=== PATIENT | female | born 1995 | race Caucasian/White ===

== ENCOUNTER 2016-06-08 09:03 | Outpatient (CLI) | payer MEDICAID ==
[~2016-06-08] VITALS: Ht 152.4 cm; Wt 112.9 kg
[~2016-06-08 09:03] MED LIST: AMOX500C2 PO; CTLP20T PO; DOCU100C37 PO; FOLI0.4T2 PO; IBUP-1780 PO; KETO75CA PO; MOME45OI11 TP; MUPI15CR11 TP; OMEP20CA6 PO; OMEP20TA7 PO; OXYC-465 PO; PREN1TAB79 PO; PROM25TA14 PO; SULF1TAB35 PO
[2016-06-08 09:32] VITALS: BP 136/65
[2016-06-08] MEDS ORDERED: RANI150T15 PO (09:48)
[2016-06-08] MEDS ORDERED: PEDI1TAB PO (09:48)
[2016-06-08] MEDS ORDERED: ACET325T38 PO (09:50)
[2016-06-08] MEDS ORDERED: FLU TRIvalent (5 YOA+) 2016-17 (AFLURIA) 0.5 ML IM ONE (10:15)
--- NOTE | 2016-06-09 09:57 | Physician Query-Final Dx ---
SHARI ADAIR 06/09/16 0957: Clinic Account Progress/Dx Physician Query: Please give diagnosis Date of Service Jun 08, 2016 at 09:03 ADILENE NICOLE MD 06/09/16 1358: Clinic Account Progress/Dx DIAGNOSIS: Diagnosis false labor SHARI ADAIR Jun 09, 2016 09:57 ADILENE NICOLE MD Jun 09, 2016 13:58
== END 2016-06-08 10:09 | disposition home or self-care (01) ==
LOC: LDRP 09:03 → WSo 09:03
PROVIDERS: ATTEND Obstetrics & Gynecology
DX: O47.02 False labor before 37 completed weeks of gestation, second trimester (principal); Z3A.28 28 weeks gestation of pregnancy
CPT/HCPCS: 99212

== ENCOUNTER 2016-07-17 21:15 | Observation (INO) | payer MEDICAID ==
[~2016-07-17] VITALS: Ht 154.9 cm; Wt 116.8 kg
[~2016-07-17 21:15] MED LIST changes: +ACET325T38 PO; +PEDI1TAB PO; +RANI150T15 PO
[2016-07-17 21:45] VITALS: BP 140/88
[2016-07-17] MEDS ORDERED: ONDANSETRON 4 MG/2 ML (SDV) Z0FRAN ONE (21:56)
[2016-07-17] MEDS ORDERED: D5 LR IV SOLUTION 1,000 ML IV ONE (21:56)
[2016-07-17] MEDS: D5 LR IV SOLUTION 1,000 ML IV SCH ×2 (22:10→23:55)
[2016-07-17] MEDS ORDERED: ONDANSETRON 4 MG/2 ML (SDV) Z0FRAN IVP ONE (22:45)
[2016-07-17 23:04] LABS: BASOPHILS % (AUTO) 0 % (0-10); EOSINOPHILS % (AUTO) 0 % (0-10); LYMPHOCYTES % (AUTO) 10 % (12-44); MEAN CORPUSCULAR HEMOGLOBIN 26 PG (25-34); MEAN CORPUSCULAR HGB CONC 32 G/DL (32-36); MEAN CORPUSCULAR VOLUME 80 FL (80-99); MEAN PLATELET VOLUME 12.8 FL (7.4-10.4); MONOCYTES # (AUTO) 0.6 X 10^3 (0.0-1.0); MONOCYTES % (AUTO) 6 % (0-12); NEUTROPHILS # (AUTO) 8.5 X 10^3 (1.8-7.8); NEUTROPHILS % (AUTO) 84 % (42-75); PLATELET COUNT 191 10^3/uL (130-400); RED BLOOD COUNT 4.12 10^6/uL (4.35-5.85); RED CELL DISTRIBUTION WIDTH 14.6 % (10.0-14.5); WHITE BLOOD COUNT 10.2 10^3/uL (4.3-11.0)
[2016-07-17 23:11] LABS: BILIRUBIN,URINE NEGATIVE (NEGATIVE); KETONES,URINE 2+ (NEGATIVE); LEUKOCYTE ESTERASE ,URINE 1+ (NEGATIVE); NITRITE,URINE NEGATIVE (NEGATIVE); PH,URINE 5 (5-9); PROTEIN,URINE 2+ (NEGATIVE); UROBILINOGEN,URINE NORMAL (NORMAL)
[2016-07-17 23:25] LABS: ALANINE AMINOTRANSFERASE < 6 U/L (0-55); ALBUMIN 3.2 G/DL (3.2-4.5); ANION GAP 13 MMOL/L (5-14); ASPARTATE AMINO TRANSFERASE 12 U/L (5-34); BILIRUBIN,TOTAL 0.4 MG/DL (0.1-1.0); BLOOD UREA NITROGEN 9 MG/DL (7-18); BUN/CREATININE RATIO 14; CALCIUM 8.8 MG/DL (8.5-10.1); CARBON DIOXIDE 17 MMOL/L (21-32); CHLORIDE 108 MMOL/L (98-107); CREATININE SERUM 0.65 MG/DL (0.60-1.30); GFR ESTIMATED > 60; GLUCOSE 91 MG/DL (70-105); POTASSIUM 4.1 MMOL/L (3.6-5.0); SODIUM 138 MMOL/L (135-145); TOTAL PROTEIN 6.3 G/DL (6.4-8.2)
[2016-07-17] MEDS ORDERED: ACETAMINOPHEN 500 MG TAB (TYLENOL) PO PRN (23:45)
[2016-07-18] MEDS ORDERED: D5 LR IV SOLUTION 1,000 ML IV SCH (02:30)
--- NOTE | 2016-07-18 07:35 | History & Physical ---
History and Physical this patient is a 20-year-old white female with an EDC of [phone] putting her at around 32 weeks gestation. She presented with complaint of nausea and vomiting 18. Baby having occasional contractions. She is able to eat. With hydration her contractions resolved. Currently she feels much improved. She denies rupture membranes or bleeding. She feels both of her baby is moving she denies contractions. She feels ready for release home Allergies are to tramadol which causes hives Medications are promethazine and vitamins Past medical history, past surgical history, obstetric history, family history, and social histories are per the antepartum record HEENT exam is normal Neck is supple no lymphadenopathy no thyromegaly Abdomen is gravid soft nontender nondistended Extreme show clubbing cyanosis. There is no Homans sign. pelvic exam is deferred Vital Signs Date Time Temp Pulse Resp B/P Pulse Ox O2 Delivery O2 Flow Rate FiO2 07/17/16 21:45 98.3 91 18 140/88 Room Air Laboratory Tests Test 07/17/16 22:00 07/17/16 22:36 Range/Units Urine Bacteria MODERATE H /HPF Urine Bilirubin NEGATIVE NEGATIVE Urine Casts NONE /LPF Urine Clarity SLIGHTLY CLOUDY Urine Color YELLOW Urine Crystals NONE /LPF Urine Culture Indicated NO Urine Glucose (UA) NEGATIVE NEGATIVE Urine Ketones 2+ H NEGATIVE Urine Leukocyte Esterase 1+ H NEGATIVE Urine Mucus SMALL H /LPF Urine Nitrite NEGATIVE NEGATIVE Urine Protein 2+ H NEGATIVE Urine RBC NONE /HPF Urine RBC (Auto) NEGATIVE NEGATIVE Urine Specific [place] 1.025 H 1.016-1.022 Urine Squamous Epithelial Cells 5-10 /HPF Urine Urobilinogen NORMAL NORMAL MG/DL Urine WBC 2-5 /HPF Urine pH 5 5-9 Alanine Aminotransferase (ALT/SGPT) < 6 0-55 U/L Albumin 3.2 3.2-4.5 G/DL Alkaline Phosphatase 126 40-136 U/L Anion Gap 13 5-14 MMOL/L Aspartate Amino Transf (AST/SGOT) 12 5-34 U/L BUN/Creatinine Ratio 14 Basophils # (Auto) 0.0 0.0-0.1 10^3/uL Basophils (%) (Auto) 0 0-10 % Blood Urea Nitrogen 9 7-18 MG/DL Calcium Level 8.8 8.5-10.1 MG/DL Carbon Dioxide Level 17 L 21-32 MMOL/L Chloride Level 108 H 98-107 MMOL/L Creatinine 0.65 0.60-1.30 MG/DL Eosinophils # (Auto) 0.0 0.0-0.3 10^3/uL Eosinophils (%) (Auto) 0 0-10 % Estimat Glomerular Filtration Rate > 60 Glucose Level 91 70-105 MG/DL Hematocrit 33 L 35-52 % Hemoglobin 10.5 L 11.5-16.0 G/DL Lymphocytes # (Auto) 1.0 1.0-4.0 X 10^3 Lymphocytes (%) (Auto) 10 L 12-44 % Mean Corpuscular Hemoglobin 26 25-34 PG Mean Corpuscular Hemoglobin Concent 32 32-36 G/DL Mean Corpuscular Volume 80 80-99 FL Mean Platelet Volume 12.8 H 7.4-10.4 FL Monocytes # (Auto) 0.6 0.0-1.0 X 10^3 Monocytes (%) (Auto) 6 0-12 % Neutrophils # (Auto) 8.5 H 1.8-7.8 X 10^3 Neutrophils (%) (Auto) 84 H 42-75 % Platelet Count 191 130-400 10^3/uL Potassium Level 4.1 3.6-5.0 MMOL/L Red Blood Count 4.12 L 4.35-5.85 10^6/uL Red Cell Distribution Width 14.6 H 10.0-14.5 % Sodium Level 138 135-145 MMOL/L Total Bilirubin 0.4 0.1-1.0 MG/DL Total Protein 6.3 L 6.4-8.2 G/DL White Blood Count 10.2 4.3-11.0 10^3/uL assessment and plan 32+ week gestation with viral syndrome now resolved. Will allow patient home follow-up in clinic viral syndrome Allergies and Home Medications Allergies Coded Allergies: tramadol (Unverified Adverse Reaction, Unknown, 04/20/16) Reports Dr Lofton told her to not take it Home Medications Acetaminophen 325 Mg Tablet 325 MG PO Q6H (Reported) Folic Acid 0.4 Mg Tablet 0.4 MG PO DAILY (Reported) Pediatric Multivit Comb No.101 1 Each Tab.chew 2 EACH PO DAILY (Reported) Promethazine HCl 25 Mg Tablet #14 25 MG PO Q8H PRN PRN NAUSEA/VOMITING Prescribed by: TONY DAVALOS on 01/06/16 0333 Ranitidine HCl 150 Mg Tablet 150 MG PO BID (Reported) ADILENE NICOLE MD Jul 18, 2016 7:35 am
--- NOTE | 2016-07-18 07:36 | Discharge Instructions ---
Discharge Instructions Discharge Medications New, Converted or Re-Newed RX: Other Patient Instructions Patient Instructions: as directed Return to [facility] For: as directed Activity & Diet Discharge Diet: No Restrictions Activity as Tolerated: Yes Orders-Post D/C & Referrals return to clinic as scheduled ADILENE NICOLE MD Jul 18, 2016 7:36 am
[2016-07-18] MEDS ORDERED: TETANUS,DIPTH,PERTUSS P/F (BOOSTRIX) 0.5 ML VIAL IM ONE (09:00)
--- NOTE | 2016-07-23 10:32 | Physician Query-Final Dx ---
JUAN ORTEGA 07/23/16 1032: Final Diagnosis Give Final Diagnosis Please give Final Diagnosis ADILENE NICOLE MD 07/23/16 1625: Final Diagnosis Give Final Diagnosis viral gastroenteritis in JUAN ORTEGA Jul 23, 2016 10:32 ADILENE NICOLE MD Jul 23, 2016 16:25
== END 2016-07-18 07:35 | disposition home or self-care (01) ==
LOC: LDRP 21:15 → WSo 21:15 → LDRP 21:22 → UNDOADMOB 21:50 → WSo 21:50 → UNDODISOB 07-18 08:05 → LDRP 07-18 08:05 → WSo 07-18 08:05 → EDSTATUS 07-18 15:01
PROVIDERS: ADMIT Obstetrics & Gynecology; ATTEND Obstetrics & Gynecology
DX: O98.513 Other viral diseases complicating pregnancy, third trimester (principal); B34.9 Viral infection, unspecified; Z3A.32 32 weeks gestation of pregnancy
CPT/HCPCS: 36415; 80053; 81000; 85025; 96360; 96361; 99211; G0378

== ENCOUNTER → 2016-07-24 | Outpatient (CLI) | payer MEDICAID ==
[~2016-07-24] MED LIST changes: +DOCU-143 PO; +HYDR-3820 PO; +IBUP-1773 PO; +LABE200T3 PO; +OXYC-197 PO
[2016-07-24 13:26] LABS: PROTEIN/CREATININE RATIO 0.15
== END ==
LOC: LABNPT 12:59
PROVIDERS: ATTEND Obstetrics & Gynecology
DX: O28.8 Other abnormal findings on antenatal screening of mother (principal)
CPT/HCPCS: 82570; 84156

== ENCOUNTER 2016-07-29 11:09 | Outpatient (RCR) | payer MEDICAID ==
[~2016-07-29 11:09] MED LIST changes: -DOCU-143 PO; -HYDR-3820 PO; -IBUP-1773 PO; -LABE200T3 PO; -OXYC-197 PO
[2016-07-30] MEDS ORDERED: OXYC-197 PO (21:09)
[2016-07-30] MEDS ORDERED: IBUP-1773 PO (21:09)
[2016-07-30] MEDS ORDERED: DOCU-143 PO (21:09)
== END 2016-07-29 12:05 | disposition home or self-care (01) ==
PROVIDERS: ATTEND Obstetrics & Gynecology
DX: O99.89 Other specified diseases and conditions complicating pregnancy, childbirth and the puerperium (principal); M54.9 Dorsalgia, unspecified

== ENCOUNTER 2016-07-30 16:30 | Inpatient (IN) | payer MEDICAID ==
[~2016-07-30] VITALS: Ht 152.4 cm; Wt 123.4 kg
[2016-07-30] VITALS (18 sets, daily range): BP systolic 138–172; BP diastolic 77–112
[2016-07-30 17:37] LABS: BILIRUBIN,URINE NEGATIVE (NEGATIVE); KETONES,URINE 1+ (NEGATIVE); LEUKOCYTE ESTERASE ,URINE 1+ (NEGATIVE); NITRITE,URINE NEGATIVE (NEGATIVE); PH,URINE 6 (5-9); PROTEIN,URINE 4+ (NEGATIVE); UROBILINOGEN,URINE 1 MG/DL (NORMAL)
[2016-07-30 17:47] LABS: BASOPHILS % (AUTO) 0 % (0-10); EOSINOPHILS % (AUTO) 0 % (0-10); LYMPHOCYTES # (AUTO) 1.2 X 10^3 (1.0-4.0); LYMPHOCYTES % (AUTO) 16 % (12-44); MEAN CORPUSCULAR HEMOGLOBIN 25 PG (25-34); MEAN CORPUSCULAR HGB CONC 32 G/DL (32-36); MEAN CORPUSCULAR VOLUME 79 FL (80-99); MEAN PLATELET VOLUME 12.5 FL (7.4-10.4); MONOCYTES # (AUTO) 0.5 X 10^3 (0.0-1.0); MONOCYTES % (AUTO) 7 % (0-12); NEUTROPHILS # (AUTO) 5.6 X 10^3 (1.8-7.8); NEUTROPHILS % (AUTO) 77 % (42-75); PLATELET COUNT 189 10^3/uL (130-400); RED BLOOD COUNT 3.93 10^6/uL (4.35-5.85); RED CELL DISTRIBUTION WIDTH 14.8 % (10.0-14.5); WHITE BLOOD COUNT 7.3 10^3/uL (4.3-11.0)
[2016-07-30 18:09] LABS: ALANINE AMINOTRANSFERASE 8 U/L (0-55); ANION GAP 11 MMOL/L (5-14); ASPARTATE AMINO TRANSFERASE 13 U/L (5-34); BILIRUBIN,TOTAL 0.2 MG/DL (0.1-1.0); BLOOD UREA NITROGEN 11 MG/DL (7-18); BUN/CREATININE RATIO 17; CALCIUM 8.6 MG/DL (8.5-10.1); CARBON DIOXIDE 20 MMOL/L (21-32); CHLORIDE 107 MMOL/L (98-107); CREATININE SERUM 0.66 MG/DL (0.60-1.30); GFR ESTIMATED > 60; GLUCOSE 89 MG/DL (70-105); LACTATE DEHYDROGENASE 158 U/L (125-220); POTASSIUM 3.8 MMOL/L (3.6-5.0); SODIUM 138 MMOL/L (135-145); TOTAL PROTEIN 5.9 G/DL (6.4-8.2); URIC ACID 7.2 MG/DL (2.6-7.2)
[2016-07-30] MEDS ORDERED: LACTATED RINGERS 1,000 ML IV ONE ×2 (18:38→19:31)
[2016-07-30 18:40] LABS: PROTEIN/CREATININE RATIO 2.44
[2016-07-30] MEDS ORDERED: METOCLOPRAMIDE INJ 10 MG/2 ML (REGLAN) ONE (19:08)
[2016-07-30] MEDS ORDERED: CITRIC ACID/SOB CIT (BICITRA) 30 ML UDC ONE (19:08)
[2016-07-30] MEDS ORDERED: FAMOTIDINE 20MG/2ML IV (PEPCID) ONE ×2 (19:09→19:31)
[2016-07-30] MEDS ORDERED: FLU TRIvalent (5 YOA+) 2016-17 (AFLURIA) 0.5 ML IM ONE (19:15)
--- NOTE | 2016-07-30 19:25 | History & Physical-OB ---
OB - Chief Complaint & HPI Date Date of Admission: Date of Admission: Chief Complaint/History OB-Reason for Admission/Chief: Hx : 2 Hx Para: 1 Expected Date of Delivery: Aug 31, 2016 Gestational Age in Weeks: 35 Gestational Age in Days: 3 Other reason for admission: 20 y/o @ 35w3d by 7 wk sono here for increased edema. Reports today she had significant increase in edema in bilateral LE, hands, face. No h/a, vision changes. Does note RUQ pain but with movement. Reports BP was increased and had to be retaken several times in clinic last week. Did have 13lb wt gain last week (at 34 wga) in clinic as well. Mother took her BP and it was elevated > 160/110. managed [address] Valente. Complicated by mono/di twin gestation, short interval (last CD 05/28/15 for FTP). otherwise c/b class III obesity, low back pain (in PT), GERD, n/v of . History of Labs O+ Antibody neg RI Hep B neg HIV neg RPR NR GC/CT neg/neg 1 hr GTT 129 Allergies and Home Medications Allergies Coded Allergies: tramadol (Unverified Adverse Reaction, Unknown, 04/20/16) Reports Dr Lofton told her to not take it Home Medications Acetaminophen 325 Mg Tablet, 325 MG PO Q6H, (Reported) Folic Acid 0.4 Mg Tablet, 0.4 MG PO DAILY, (Reported) Pediatric Multivit Comb No.101 1 Each Tab.chew, 2 EACH PO DAILY, (Reported) Promethazine HCl 25 Mg Tablet, 25 MG PO Q8H PRN for NAUSEA/VOMITING, #14 Prescribed by: TONY DAVALOS on 01/06/16 0333 Ranitidine HCl 150 Mg Tablet, 150 MG PO BID, (Reported) OB - History Hx of Present Care: Yes Ultrasounds: Abnormal US findings (mono/di twin gestation) Obstetrical Complications: Other (mono/di twin gestation) Medical Complications: Other (class III obesity, GERD, low back pain) Information Induced Hypertension: Yes Maternal Gestational Diabetes: No Hemorrhage: No Obstetrical History Hx : 2 Hx Para: 1 Hx Total # of Abortions (Spona: 0 Delivery History Hx Section: Yes (FTP, [id number], May 2015) Hx Blood Disorders: No Adverse Rxn to Tranfusion: No Patient Past Medical History see above Social History/Family History HIV/AIDS: No Recent Infectious Disease Expo: No Sexually Transmitted Disease: No Alcohol Use: Denies Use Recreational Drug Use: No Smoking Cessation: Never smoker Immunizations Hepatitis A: Yes Hepatitis B: Yes Tetanus Booster (TDap): Less than 5yrs Date of Influenza Vaccine: Feb 24, 2015 Rubella: immune RPR/VDRL: Negative GBS Status: Negative HBsAG: Negative OB - Admission Exam Physical Exam Vitals: Vital Signs 07/30/16 07/30/16 16:50 17:48 Temp 98.4 Pulse 88 Resp 20 B/P (MAP) 162/79 HEENT: NCAT Heart: Rhythm Normal Lungs: Clear Abdomen: Gravid Extremities: Edema (2+ pitting edema bilat LE to level of knee) Reflexes: Normal Heart Rate: 140's (A 145, B 140) Accelerations: Accelerations Present Decelerations: No Decelerations Short Term Variability: Present Halfway Variability: Average (6-25) Contractions on Admission: 6-10 Minutes Apart Labs Laboratory Tests Test 07/30/16 17:10 07/30/16 17:35 Range/Units Urine Color YELLOW Urine Clarity SLIGHTLY CLOUDY Urine pH 6 5-9 Urine Specific [place] 1.025 H 1.016-1.022 Urine Protein 677 H 6-12 MG/DL Urine Glucose (UA) NEGATIVE NEGATIVE Urine Ketones 1+ H NEGATIVE Urine Nitrite NEGATIVE NEGATIVE Urine Bilirubin NEGATIVE NEGATIVE Urine Urobilinogen 1 NORMAL MG/DL Urine Leukocyte Esterase 1+ H NEGATIVE Urine RBC (Auto) NEGATIVE NEGATIVE Urine RBC NONE /HPF Urine WBC 5-10 H /HPF Urine Squamous Epithelial Cells 10-25 H /HPF Urine Crystals NONE /LPF Urine Bacteria FEW H /HPF Urine Casts NONE /LPF Urine Mucus LARGE H /LPF Urine Culture Indicated NO Urine Creatinine 277 H 30-125 MG/DL Urine Protein/Creatinine Ratio 2.44 White Blood Count 7.3 4.3-11.0 10^3/uL Red Blood Count 3.93 L 4.35-5.85 10^6/uL Hemoglobin 9.9 L 11.5-16.0 G/DL Hematocrit 31 L 35-52 % Mean Corpuscular Volume 79 L 80-99 FL Mean Corpuscular Hemoglobin 25 25-34 PG Mean Corpuscular Hemoglobin Concent 32 32-36 G/DL Red Cell Distribution Width 14.8 H 10.0-14.5 % Platelet Count 189 130-400 10^3/uL Mean Platelet Volume 12.5 H 7.4-10.4 FL Neutrophils (%) (Auto) 77 H 42-75 % Lymphocytes (%) (Auto) 16 12-44 % Monocytes (%) (Auto) 7 0-12 % Eosinophils (%) (Auto) 0 0-10 % Basophils (%) (Auto) 0 0-10 % Neutrophils # (Auto) 5.6 1.8-7.8 X 10^3 Lymphocytes # (Auto) 1.2 1.0-4.0 X 10^3 Monocytes # (Auto) 0.5 0.0-1.0 X 10^3 Eosinophils # (Auto) 0.0 0.0-0.3 10^3/uL Basophils # (Auto) 0.0 0.0-0.1 10^3/uL Sodium Level 138 135-145 MMOL/L Potassium Level 3.8 3.6-5.0 MMOL/L Chloride Level 107 98-107 MMOL/L Carbon Dioxide Level 20 L 21-32 MMOL/L Anion Gap 11 5-14 MMOL/L Blood Urea Nitrogen 11 7-18 MG/DL Creatinine 0.66 0.60-1.30 MG/DL Estimat Glomerular Filtration Rate > 60 BUN/Creatinine Ratio 17 Glucose Level 89 70-105 MG/DL Uric Acid 7.2 2.6-7.2 MG/DL Calcium Level 8.6 8.5-10.1 MG/DL Total Bilirubin 0.2 0.1-1.0 MG/DL Aspartate Amino Transf (AST/SGOT) 13 5-34 U/L Alanine Aminotransferase (ALT/SGPT) 8 0-55 U/L Alkaline Phosphatase 132 40-136 U/L Lactate Dehydrogenase 158 125-220 U/L Total Protein 5.9 L 6.4-8.2 G/DL Albumin 3.0 L 3.2-4.5 G/DL OB - Assessment/Plan/Diagnosis Plan Plan: Section Other Plan 20 y/o @ 35w3d with severe pre-eclampsia diagnosed with several BPs > 160/110 and 4+ proteinuria. [place]/di twins Class III obesity GERD N/V of Rh+ RI HELLP labs pending To OR for CD Deborah-operative ancef Will need magnesium sulfate for seizure ppx Lovenox, SCDs post-op Will initiate anti-hypertensive therapy if BPs consistently severe range BRENNA SANDERS MD Jul 30, 2016 19:25
[2016-07-30] MEDS ORDERED: ONDANSETRON 4 MG/2 ML (SDV) Z0FRAN ONE (19:31)
[2016-07-30] MEDS ORDERED: fentaNYL INJECTION 100 MCG/2 ML AMP ONE (19:31)
[2016-07-30] MEDS ORDERED: OXYTOCIN/NORMAL SALINE 500 ML IV ONE ×2 (19:31→22:08)
[2016-07-30] MEDS ORDERED: ceFAZolin 2 GM/50 ML NS 50 ML IV ONE (20:00)
[2016-07-30] MEDS ORDERED: KETOROLAC 30 MG/ML VIAL ONE (20:18)
[2016-07-30] MEDS ORDERED: ONDANSETRON 4 MG/2 ML (SDV) Z0FRAN IVP PRN (21:00)
[2016-07-30] MEDS ORDERED: diphenhydrAMINE 50 MG/ML INJ (BENADRYL) IV PRN (21:00)
[2016-07-30] MEDS ORDERED: MEPERIDINE (DEMEROL) INJ 50 MG/ML IVP PRN (21:00)
[2016-07-30] MEDS ORDERED: morphine INJ 10 MG/ML 1ML (SYR OR VIAL) IVP PRN (21:00)
[2016-07-30] MEDS ORDERED: NALOXONE 0.4 MG/ML 1 ML (NARCAN) VIAL IV PRN ×2 (21:00)
[2016-07-30] MEDS ORDERED: METOCLOPRAMIDE INJ 10 MG/2 ML (REGLAN) IV PRN (21:00)
[2016-07-30] MEDS ORDERED: ONDANSETRON 4 MG/2 ML (SDV) Z0FRAN IV PRN (21:00)
[2016-07-30] MEDS ORDERED: IBUP-1773 PO (21:09)
[2016-07-30] MEDS ORDERED: DOCU-143 PO (21:09)
[2016-07-30] MEDS ORDERED: OXYC-197 PO (21:09)
--- NOTE | 2016-07-30 21:11 | Discharge Inst-Women's Service ---
Discharge Inst-Women's Serv Depart Medication/Instructions New, Converted or Re-Newed RX: RX on Chart (and transmitted to pharmacy) Final Diagnosis Severe pre-eclampsia at 35w3d, history of primary low transverse delivery, repeat delivery Consults/Follow Up Additional Follow Up: Yes Orders/Referrals One week with Dr. Valente for incision/blood pressure check [address] Valente for care Activity Driving Instructions: No Driving for 1 Week (or while taking narcotic pain medications) NO SMOKING: NO SMOKING Nothing Inside Vagina: No Douching, No [place], No Tampons Other Activity No lifting > 10lb, no strenuous activity until cleared by Dr. Valente Diet Discharge Diet: No Restrictions Symptoms to Report to DrJanuary: Swelling Increased, Bleeding Excessive, Eyesight Changes, Pain Increased, Fever Over 101 Degrees F, Pain/Pressure in Chest, Vaginal Bleeding Increase, Dizziness/Fainting, Nausea/Vomiting, Shortness of Breath Call for headache, vision changes, severe right upper quadrant abdominal pain, sudden increase in edema, chest pain, shortness of breath as these can all be signs of worsening pre-eclampsia For Any Problems or Questions: Contact Your Physician, Go to Emergency Room Skin/Wound Care Infection Signs and Symptoms: Increased Redness, Foul Odor of Wound, Increased Drainage Operative Area Clean and Dry: Keep Incision Clean/Dry Stitches/[place]/Dermabond: Dermabond, Care of Stitches Bathing Instructions: BRENNA Meadows MD Jul 30, 2016 21:11
--- NOTE | 2016-07-30 21:44 | Cesarean Section Operative ---
Procedure Procedure Note Date of Procedure: 07/30/16 Pre-operative Diagnosis: Tammy Norris is a 20 y/o @ 35w3d with severe pre-eclampsia, monochorionic diamniotic twin gestation, class III obesity, history of delivery Post-operative Diagnosis: Same Procedure: Repeat low transverse section Physician: Lisa Pal MD Surgical Orderly: Hollie Caal APRN who was vital to the case for retraction and exposure of cervantes structures Estimated blood loss: 600 mL Specimens: Cord blood, cord gas, placenta to lab Disposition: Recovery room, stable Findings: A: Viable male infant, Apgars 8/9, weight 5lb3oz B: Viable male infant, Apgars 8/9, weight [id number] Intact placenta, 3vc, normal appearing uterus, tubes, and ovaries. Indications: Tammy Norris is a 20 y/o @ 35w3d who presented with sudden increase in edema and elevated blood pressure in . She was found to have severe pre-eclampsia and was counseled that proceeding with delivery was indicated. Procedure Details: The patient was seen in pre-op and the procedure was discussed with the patient in full, including the risks, benefits, and alternatives. All questions were answered. The patient was taken to the operating room and a time out was performed, verifying patient and procedure. After spinal anesthesia was placed by our anesthesia colleagues, the patient was placed in the dorsal supine with leftward tilt for uterine displacement. Her abdomen was then prepped and draped in the typical sterile fashion. A Pfannenstiel skin incision was made using a scalpel and carried down through the underlying fascia. The fascia was incised in the midline and tented up using Alaina clamps. On both the inferior and superior fascia side the rectus muscle was dissected off bluntly and sharply using Wright scissors. The peritoneum was identified and entered bluntly in the midline. This was then stretched laterally using manual strength. After entering the abdominal cavity and confirming lack of intraperitoneal adhesions, an extra-large Sanford retractor was placed and the lower uterine segment was visualized. A bladder flap was created with the use of Metzenbaum scissors. A scalpel was utilized to make a low transverse uterine incision. Amniotomy of twin A was performed with an Allis clamp with return of clear fluid. The infant's head was grasped and brought to the level of the incision. Fundal pressure was applied and infant was delivered without difficulty. Mouth and nares were suctioned with bulb suction. After the umbilical cord was clamped and cut, the infant was handed off to the pediatric staff. A sample of cord blood and cord blood gas was then obtained. We then turned our attention to twin B. Amniotomy of twin B was performed with an Allis clamp with return of clear fluid. The 's head was grasped and brought to the level of the incision. Fundal pressure was applied and infant was delivered without difficulty. Mouth and nares were suctioned with bulb suction. After the umbilical cord was clamped and cut, the infant was handed off to the pediatric staff. A sample of cord blood and cord blood gas was then obtained. The placenta was delivered intact via uterine massage. The uterus was cleared of all clots and debris. The uterine incision was closed using 0 Vicryl in a running locked fashion. A second imbricated layer was placed using 0 Vicryl in a running fashion as well. The hysterotomy site was examined and hemostasis was observed. The bilateral tubes and ovaries appeared normal. The abdominal gutters were cleared of all clots and debris. A final check of the uterine incision showed it to be hemostatic. The peritoneum was closed using 3-0 Vicryl in a running fashion. The fascia was closed with 0 Vicryl in a running fashion. The subcutaneous space was hemostatic, and irrigated. The subcutaneous space was closed with 3-0 Vicryl in several single interrupted stitches. The skin was then closed using 4-0 Monocryl in a running subcuticular fashion. The skin edges were reapproximated together and were hemostatic. A pressure dressing was applied. All sponge, lap and needle counts were correct at the end of the procedure per nursing. Vitals - Labs Vital Signs - I&O Vital Signs Date Time Temp Pulse Resp B/P (MAP) Pulse Ox O2 Delivery O2 Flow Rate FiO2 07/30/16 19:00 96 20 154/95 07/30/16 18:32 95 20 154/100 07/30/16 18:18 98.4 92 20 171/102 07/30/16 18:02 93 20 155/87 07/30/16 17:48 88 20 162/79 07/30/16 17:30 97 20 138/97 07/30/16 16:50 98.4 91 20 167/97 Labs Laboratory Tests 07/30/16 17:10: Urine Color YELLOW, Urine Clarity SLIGHTLY CLOUDY, Urine pH 6, Urine Specific [place] 1.025H, Urine Protein 677H, Urine Glucose (UA) NEGATIVE, Urine Ketones 1 +H, Urine Nitrite NEGATIVE, Urine Bilirubin NEGATIVE, Urine Urobilinogen 1, Urine Leukocyte Esterase 1+H, Urine RBC (Auto) NEGATIVE, Urine RBC NONE, Urine WBC 5-10H, Urine Squamous Epithelial Cells 10-25H, Urine Crystals NONE, Urine Bacteria FEWH, Urine Casts NONE, Urine Mucus LARGEH, Urine Culture Indicated NO , Urine Creatinine 277H, Urine Protein/Creatinine Ratio 2.44 07/30/16 17:35: White Blood Count 7.3, Red Blood Count 3.93L, Hemoglobin 9.9L, Hematocrit 31L, Mean Corpuscular Volume 79L, Mean Corpuscular Hemoglobin 25, Mean Corpuscular Hemoglobin Concent 32, Red Cell Distribution Width 14.8H, Platelet Count 189, Mean Platelet Volume 12.5H, Neutrophils (%) (Auto) 77H, Lymphocytes (%) (Auto) 16, Monocytes (%) (Auto) 7, Eosinophils (%) (Auto) 0, Basophils (%) (Auto) 0, Neutrophils # (Auto) 5.6, Lymphocytes # (Auto) 1.2, Monocytes # (Auto) 0.5, Eosinophils # (Auto) 0.0, Basophils # (Auto) 0.0, Sodium Level 138, Potassium Level 3.8, Chloride Level 107, Carbon Dioxide Level 20L, Anion Gap 11, Blood Urea Nitrogen 11, Creatinine 0.66, Estimat Glomerular Filtration Rate > 60, BUN/ Creatinine Ratio 17, Glucose Level 89, Uric Acid 7.2, Calcium Level 8.6, Total Bilirubin 0.2, Aspartate Amino Transf (AST/SGOT) 13, Alanine Aminotransferase ( ALT/SGPT) 8, Alkaline Phosphatase 132, Lactate Dehydrogenase 158, Total Protein 5.9L, Albumin 3.0L LISA PAL MD Jul 30, 2016 21:43
[2016-07-30] MEDS ORDERED: MAGNESIUM 4 GM/100 ML IVPB 100 ML IV ONE (21:57)
[2016-07-30] MEDS ORDERED: MAGNESIUM SULFATE DRIP 500 ML IV ONE (21:57)
[2016-07-30] MEDS ORDERED: D5 LR IV SOLUTION 1,000 ML IV ONE (21:58)
[2016-07-30] MEDS ORDERED: CALCIUM GLUC. 10% 4.65 MEQ/10 ML VIAL IV PRN (22:30)
[2016-07-30] MEDS ORDERED: ACETAMINOPHEN 325 MG TABLET/CAPLET (TYLENOL) PO SCH (22:30)
[2016-07-30] MEDS ORDERED: OXYTOCIN/NORMAL SALINE 500 ML IV SCH (22:30)
[2016-07-30] MEDS ORDERED: TETANUS,DIPTH,PERTUSS P/F (BOOSTRIX) 0.5 ML VIAL IM SCH (22:30)
[2016-07-30] MEDS ORDERED: PROMETHAZINE 25 MG (PHENERGAN) TAB PO PRN (22:30)
[2016-07-30] MEDS ORDERED: MEASLES,MUMPS,RUBELLA 1 EA INJ SC SCH (22:30)
[2016-07-30] MEDS ORDERED: DOCUSATE SODIUM 100 MG (COLACE) CAP PO PRN (22:30)
[2016-07-30] MEDS ORDERED: MAGNESIUM 4 GM/100 ML IVPB 100 ML IV SCH (22:30)
[2016-07-30] MEDS ORDERED: morphine INJ 4 MG/ML 1 ML (VIAL/SYRINGE) IVP PRN (22:30)
[2016-07-30] MEDS ORDERED: D5 LR IV SOLUTION 1,000 ML IV SCH (22:30)
[2016-07-30] MEDS ORDERED: IBUPROFEN 600 MG (MOTRIN) TAB PO SCH (22:30)
[2016-07-30] MEDS: MAGNESIUM SULFATE DRIP 500 ML IV SCH (22:35)
[2016-07-30] MEDS: oxyCODONE/APAP 5/325MG (PERCOCET 5) TABLET PO PRN (22:41)
[2016-07-31] VITALS (23 sets, daily range): BP systolic 120–164; BP diastolic 75–108
[2016-07-31] MEDS: oxyCODONE/APAP 5/325MG (PERCOCET 5) TABLET PO PRN ×5 (02:04→23:53)
[2016-07-31] MEDS: KETOROLAC 30 MG/ML VIAL IVP SCH ×3 (02:04→15:12)
[2016-07-31 05:55] LABS: BASOPHILS % (AUTO) 0 % (0-10); EOSINOPHILS # (AUTO) 0.1 10^3/uL (0.0-0.3); EOSINOPHILS % (AUTO) 1 % (0-10); LYMPHOCYTES # (AUTO) 1.8 X 10^3 (1.0-4.0); LYMPHOCYTES % (AUTO) 16 % (12-44); MEAN CORPUSCULAR HEMOGLOBIN 25 PG (25-34); MEAN CORPUSCULAR HGB CONC 32 G/DL (32-36); MEAN CORPUSCULAR VOLUME 78 FL (80-99); MEAN PLATELET VOLUME 12.4 FL (7.4-10.4); MONOCYTES % (AUTO) 9 % (0-12); NEUTROPHILS # (AUTO) 8.2 X 10^3 (1.8-7.8); NEUTROPHILS % (AUTO) 74 % (42-75); PLATELET COUNT 175 10^3/uL (130-400); RED BLOOD COUNT 3.94 10^6/uL (4.35-5.85); RED CELL DISTRIBUTION WIDTH 14.6 % (10.0-14.5)
[2016-07-31] MEDS ORDERED: CATHETER FLUSH 10 ML SYR IV SCH (06:00)
[2016-07-31] MEDS: FERROUS SULF 325 MG (IRON) TAB PO SCH ×2 (07:39→17:00)
[2016-07-31] MEDS: LABETALOL 200 MG (NORMODYNE) TAB PO SCH ×2 (07:40→20:59)
[2016-07-31] MEDS: DOCUSATE SODIUM 100 MG (COLACE) CAP PO SCH ×2 (07:40→20:59)
[2016-07-31] MEDS: ENOXAPARIN 40 MG/0.4 ML (LOVENOX) SYR SC SCH (07:40)
[2016-07-31] MEDS ORDERED: FAMOTIDINE 20 MG (PEPCID) TABLET PO PRN (08:15)
[2016-07-31] MEDS: MAGNESIUM SULFATE DRIP 500 ML IV SCH (08:31)
[2016-07-31] MEDS ORDERED: raNItidine (ZANTAC) 150 MG TAB NON-FORMULARY PO SCH (09:00)
--- NOTE | 2016-07-31 09:43 | Progress Note-Standard ---
Standard Progress Note Progress Notes/Assess & Plan Progress/Assessment & Plan This patient of Dr. Valente was delivered by Dr. Pal last night for severe PreE at 35 weeks. Patient underwent RLTCS and delivered twins. She was continued on MgSO4 through the night and is on it still this morning. BP continues to be elevated, patient has significant swelling of LE, and headache which she complains of this morning. Denies changes in vision, CP, SOB. Report decent pain control, but does reports hurting quite a bit when she tries to move. Vital Sign - Last 24 Hours 07/30/16 07/30/16 07/30/16 07/30/16 16:50 17:30 17:48 18:02 Temp 98.4 Pulse 91 97 88 93 Resp 20 20 20 20 B/P (MAP) 167/97 138/97 162/79 155/87 07/30/16 07/30/16 07/30/16 07/30/16 18:18 18:32 19:00 19:15 Temp 98.4 Pulse 92 95 96 93 Resp 20 20 20 20 B/P (MAP) 171/102 154/100 154/95 172/107 07/30/16 07/30/16 07/30/16 07/30/16 19:32 21:47 22:00 22:18 Pulse 78 75 67 70 Resp 20 20 20 20 B/P (MAP) 155/77 150/88 143/92 155/108 Pulse Ox 100 100 100 O2 Delivery Room Air Room Air Room Air 07/30/16 07/30/16 07/30/16 07/30/16 22:30 22:45 23:00 23:15 Pulse 69 79 79 80 Resp 20 20 20 20 B/P (MAP) 145/94 164/112 149/98 162/96 Pulse Ox 100 99 98 98 O2 Delivery Room Air Room Air Room Air Room Air 07/30/16 07/30/16 07/31/16 07/31/16 23:30 23:45 00:00 00:15 Pulse 83 81 83 81 Resp 20 20 20 20 B/P (MAP) 160/100 159/103 152/99 155/102 Pulse Ox 98 98 98 98 O2 Delivery Room Air Room Air Room Air Room Air 07/31/16 07/31/16 07/31/16 07/31/16 00:28 01:00 02:00 03:00 Pulse 84 86 86 91 Resp 20 20 20 20 B/P (MAP) 158/103 152/100 150/100 142/91 Pulse Ox 98 99 98 98 O2 Delivery Room Air Room Air Room Air Room Air 07/31/16 07/31/16 07/31/16 07/31/16 04:00 05:00 06:00 07:00 Temp 98.8 97.6 Pulse 82 80 73 93 Resp 20 20 20 20 B/P (MAP) 147/91 151/98 150/98 154/104 Pulse Ox 98 98 98 100 O2 Delivery Room Air Room Air Room Air Room Air 07/31/16 08:00 Temp 98.0 Pulse 78 Resp 20 B/P (MAP) 148/99 Pulse Ox 99 O2 Delivery Room Air Intake and Output 07/30/16 07/30/16 07/31/16 15:00 23:00 07:00 Intake Total 50 ml 1135 ml Output Total 110 ml 550 ml Balance -60 ml 585 ml Laboratory Tests Test 07/30/16 17:10 07/30/16 17:35 07/31/16 05:42 Range/Units Urine Color YELLOW Urine Clarity SLIGHTLY CLOUDY Urine pH 6 5-9 Urine Specific [place] 1.025 H 1.016-1.022 Urine Protein 677 H 6-12 MG/DL Urine Glucose (UA) NEGATIVE NEGATIVE Urine Ketones 1+ H NEGATIVE Urine Nitrite NEGATIVE NEGATIVE Urine Bilirubin NEGATIVE NEGATIVE Urine Urobilinogen 1 NORMAL MG/DL Urine Leukocyte Esterase 1+ H NEGATIVE Urine RBC (Auto) NEGATIVE NEGATIVE Urine RBC NONE /HPF Urine WBC 5-10 H /HPF Urine Squamous Epithelial Cells 10-25 H /HPF Urine Crystals NONE /LPF Urine Bacteria FEW H /HPF Urine Casts NONE /LPF Urine Mucus LARGE H /LPF Urine Culture Indicated NO Urine Creatinine 277 H 30-125 MG/DL Urine Protein/Creatinine Ratio 2.44 White Blood Count 7.3 11.0 4.3-11.0 10^3/uL Red Blood Count 3.93 L 3.94 L 4.35-5.85 10^6/uL Hemoglobin 9.9 L 9.9 L 11.5-16.0 G/DL Hematocrit 31 L 31 L 35-52 % Mean Corpuscular Volume 79 L 78 L 80-99 FL Mean Corpuscular Hemoglobin 25 25 25-34 PG Mean Corpuscular Hemoglobin Concent 32 32 32-36 G/DL Red Cell Distribution Width 14.8 H 14.6 H 10.0-14.5 % Platelet Count 189 175 130-400 10^3/uL Mean Platelet Volume 12.5 H 12.4 H 7.4-10.4 FL Neutrophils (%) (Auto) 77 H 74 42-75 % Lymphocytes (%) (Auto) 16 16 12-44 % Monocytes (%) (Auto) 7 9 0-12 % Eosinophils (%) (Auto) 0 1 0-10 % Basophils (%) (Auto) 0 0 0-10 % Neutrophils # (Auto) 5.6 8.2 H 1.8-7.8 X 10^3 Lymphocytes # (Auto) 1.2 1.8 1.0-4.0 X 10^3 Monocytes # (Auto) 0.5 1.0 0.0-1.0 X 10^3 Eosinophils # (Auto) 0.0 0.1 0.0-0.3 10^3/uL Basophils # (Auto) 0.0 0.0 0.0-0.1 10^3/uL Sodium Level 138 135-145 MMOL/L Potassium Level 3.8 3.6-5.0 MMOL/L Chloride Level 107 98-107 MMOL/L Carbon Dioxide Level 20 L 21-32 MMOL/L Anion Gap 11 5-14 MMOL/L Blood Urea Nitrogen 11 7-18 MG/DL Creatinine 0.66 0.60-1.30 MG/DL Estimat Glomerular Filtration Rate > 60 BUN/Creatinine Ratio 17 Glucose Level 89 70-105 MG/DL Uric Acid 7.2 2.6-7.2 MG/DL Calcium Level 8.6 8.5-10.1 MG/DL Magnesium Level 1.8 1.8-2.4 MG/DL Total Bilirubin 0.2 0.1-1.0 MG/DL Aspartate Amino Transf (AST/SGOT) 13 5-34 U/L Alanine Aminotransferase (ALT/SGPT) 8 0-55 U/L Alkaline Phosphatase 132 40-136 U/L Lactate Dehydrogenase 158 125-220 U/L Total Protein 5.9 L 6.4-8.2 G/DL Albumin 3.0 L 3.2-4.5 G/DL Incision: c/d/i DTR +2/4 bl Lungs clear UOP >50cc/hr Diagnosis: 35 week RLTCS POD 1 Severe PreE- patient continues to be symptomatic and BP elevations Morbid Obesity Twin - delivered P: Patient started on Labetalol this AM to help with BP elevation Plan on continuing MgSO4 until 2100 PO care, and hill continued in place for strict I and Os until MgSO4 discontinued Will encourage ambulation once Mag stopped, but patient started on Lovenox today for DVT prophylaxis, SCDs. ERIKA COOK DO Jul 31, 2016 9:43 am
--- NOTE | 2016-07-31 10:47 | Anesthesia-Regional Post-Op ---
Regional Patient Condition Mental Status: Alert, Oriented x3 Circulation: Same as Pre-Op Headache: Absent Sensation: Full Recovery Motor Block: Absent Post Op Complications Complications None Follow Up Care/Instructions Patient Instructions None needed. Anesthesia/Patient Condition Patient is doing well, no complaints, stable vital signs, no apparent adverse anesthesia problems. No complications reported per nursing. D/C home per [facility] Criteria: KAVIN Leyva DO Jul 31, 2016 10:47
[2016-07-31] MEDS ORDERED: IBUPROFEN 600 MG (MOTRIN) TAB PO ONE (20:54)
[2016-07-31] MEDS ORDERED: IBUPROFEN 800 MG (MOTRIN) TAB PO ONE (20:58)
[2016-07-31] MEDS: IBUPROFEN 800 MG (MOTRIN) TAB PO SCH (21:00)
[2016-08-01 03:25] VITALS: BP 141/84
[2016-08-01] MEDS: IBUPROFEN 800 MG (MOTRIN) TAB PO SCH ×4 (03:27→21:14)
[2016-08-01] MEDS: DOCUSATE SODIUM 100 MG (COLACE) CAP PO SCH ×2 (08:54→19:51)
[2016-08-01] MEDS: FERROUS SULF 325 MG (IRON) TAB PO SCH ×2 (08:54→19:50)
[2016-08-01] MEDS: LABETALOL 200 MG (NORMODYNE) TAB PO SCH ×3 (08:55→21:14)
[2016-08-01] MEDS: ENOXAPARIN 40 MG/0.4 ML (LOVENOX) SYR SC SCH (08:55)
[2016-08-01] MEDS: oxyCODONE/APAP 5/325MG (PERCOCET 5) TABLET PO PRN ×2 (08:58→19:51)
[2016-08-01 09:00] VITALS: BP 147/97
--- NOTE | 2016-08-01 09:05 | Progress Note-Standard ---
Standard Progress Note Progress Notes/Assess & Plan Progress/Assessment & Plan Patient is doing better today. Edema improved. Pain controlled, but would like to try 800 ibuprofen. Vital Sign - Last 24 Hours 07/31/16 07/31/16 07/31/16 07/31/16 10:00 11:00 12:00 13:00 Temp 97.6 Pulse 75 78 81 88 Resp 18 18 18 20 B/P (MAP) 133/79 136/84 120/75 131/83 Pulse Ox 97 99 98 98 O2 Delivery Room Air Room Air Room Air Room Air 07/31/16 07/31/16 07/31/16 07/31/16 14:00 15:00 16:00 17:00 Temp 97.9 Pulse 88 83 86 82 Resp 18 18 18 B/P (MAP) 131/85 125/79 164/108 127/79 Pulse Ox 98 99 98 98 O2 Delivery Room Air Room Air Room Air Room Air 07/31/16 07/31/16 07/31/16 08/01/16 18:00 21:00 23:55 03:25 Temp 97.4 97.3 98.2 Pulse 88 88 90 74 Resp 18 18 B/P (MAP) 125/81 144/89 155/95 141/84 Pulse Ox 100 100 99 100 O2 Delivery Room Air Room Air Room Air Room Air Intake and Output 07/31/16 07/31/16 08/01/16 15:00 23:00 07:00 Intake Total 500 ml 2855 ml 950 ml Output Total 2040 ml 800 ml Balance 500 ml 815 ml 150 ml Incision: c/d/i Diagnosis: 35 week RLTCS POD 2 Severe PreE- patient continues to be symptomatic and BP elevations Morbid Obesity Twin - delivered P: Patient started on Labetalol BP better Encourage ambulation PO precautions reviewed ERIKA COOK DO Aug 01, 2016 9:05 am
[2016-08-01 15:00] VITALS: BP 134/78
[2016-08-01 20:00] VITALS: BP 152/86
[2016-08-02 03:00] VITALS: BP 141/90
[2016-08-02] MEDS: IBUPROFEN 800 MG (MOTRIN) TAB PO SCH ×3 (03:05→15:05)
[2016-08-02 06:30] VITALS: BP 137/91
[2016-08-02] MEDS: ENOXAPARIN 40 MG/0.4 ML (LOVENOX) SYR SC SCH (09:00)
[2016-08-02 09:05] VITALS: BP 141/91
[2016-08-02] MEDS: FERROUS SULF 325 MG (IRON) TAB PO SCH (09:08)
[2016-08-02] MEDS: LABETALOL 200 MG (NORMODYNE) TAB PO SCH ×2 (09:09→15:06)
[2016-08-02] MEDS: DOCUSATE SODIUM 100 MG (COLACE) CAP PO SCH (09:09)
[2016-08-02] MEDS ORDERED: HYDR-3820 PO (09:10)
[2016-08-02] MEDS ORDERED: IBUP-1780 PO (09:10)
[2016-08-02] MEDS ORDERED: LABE200T3 PO (09:11)
--- NOTE | 2016-08-02 09:26 | Progress Note-Standard ---
Standard Progress Note Progress Notes/Assess & Plan Progress/Assessment & Plan Patient is doing well, but does not think that percocet is doing anything for her pain, would like to try hydrocodone. Ambulating voiding freely. Vital Signs 08/02/16 09:05 Temp 98.2 Pulse 90 Resp 18 B/P (MAP) 141/91 Pulse Ox 99 O2 Delivery Room Air Incision: c/d/i Diagnosis: 35 week RLTCS POD 3 Severe PreE- bp improved yesterday with treatment Morbid Obesity Twin - delivered P: BP continues to be fairly well controlled on labetalol Encourage ambulation PO precautions reviewed PreE precautions reviewed. DC today. ERIKA COOK DO Aug 02, 2016 9:26 am
[2016-08-02] MEDS: HYDROcodone/APAP 10 MG/325 MG (LORTAB) TAB PO PRN ×2 (09:42→15:53)
[2016-08-02 15:09] VITALS: BP 127/89
--- OUTSIDE RECORDS SUMMARY | 2016-08-03 05:19 | XMS REPORT | Continuity of Care Document ---
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 0.0-0.3 Automated blood basophil count (count/volume) 0.0 10*3/uL 0.0-0.1 Encounters ACCT No. Visit Date/Time Discharge Status Pt. Type Provider Facility Loc./Unit Complaint [id number] 07/29/2016 11:09:00 2016 12:05:00 DIS Outpatient ADILENE NICOLE MD [facility] REHAB BACK PAIN 28 WEEKS WITH TWINS [id number] 07/17/2016 21:22:00 2016 07:35:00 DIS Inpatient ADILENE NICOLE MD [facility] LDRP ABD PAIN,VOMITING [id number] 06/08/2016 09:03:00 2016 10:09:00 DIS Outpatient ADILENE NICOLE MD [facility] PELVIS AND ABD PAIN [id number] 04/20/2016 02:37:00 2015 03:20:00 DIS Emergency JAZMINE CORONADO DO [facility] ER POSSIBLE ALLERGIC REACTION [id number] 03/24/2016 21:34:00 2015 23:45:00 DIS Emergency TONY DAVALOS MD [facility] ER VAGINAL SPOTTING, 17 W 1 DAY [id number] 01/05/2016 23:28:00 2015 03:38:00 DIS Emergency TONY DAVALOS MD [facility] ER CRAMPING,POSS 4 WKS PREG,CAN' T EAT,DRY HEAVING [id number] 09/26/2015 08:36:00 2015 14:04:00 DIS Outpatient YANI THOMAS MD [facility] REHAB LOW BACK PAIN [id number] 07/25/2015 02:20:00 2015 03:17:00 DIS Emergency TONY DAVALOS MD [facility] ER VOMITING,ABD PAIN,CLAMMY [id number] 05/14/2015 18:36:00 2015 18:45:00 DIS Outpatient YANI THOMAS MD [facility] WSo ABD PAIN, CONTRACTIONS [id number] 02/12/2015 10:09:00 2014 23:59:59 CLS Outpatient YANI THOMAS MD [facility] RAD FOLLOW UP EVALUATE SPINE [id number] 01/23/2015 13:56:00 2014 23:59:59 CLS Outpatient YANI THOMAS MD [facility] RAD SURVEY [id number] 12/05/2014 12:47:00 2014 23:59:59 CLS Outpatient YANI THOMAS MD [facility] RAD SIZE DATE DISCREPENCY [id number] 12/26/2013 22:26:00 2013 00:46:00 DIS Emergency OSWALDO CELIS DO [facility] ER ALTERCATION [id number] 07/13/2013 22:55:00 2013 03:18:00 DIS Emergency SHAWANDA TIRADO MD [facility] ER VOMITING [id number] 11/01/2012 17:45:00 2012 13:45:00 DIS Inpatient [id number] 07/30/2016 17:48:00 Document Registration [id number] 07/24/2016 12:59:00 ACT Outpatient COREY MEEKS, ADILENE Alvarez [facility] LABNPT OTHER ABNORMAL FINDING ON SCREENING [id number] 09/26/2015 08:04:00 ACT Outpatient YANI THOMAS MD [facility] RAD LOW BACK PAIN [id number] 05/27/2015 19:07:00 ACT Inpatient YANI THOMAS MD [facility] LDRP INDUCTION
== END 2016-08-02 17:40 | disposition home or self-care (01) | DRG 765 ==
LOC: DELPENDDIS → WSo 16:30 → LDRP 18:46
PROVIDERS: ADMIT Obstetrics & Gynecology; ATTEND Obstetrics & Gynecology
PROC: 10D00Z1 Extraction of Products of Conception, Low, Open Approach (ICD-10-PCS; principal; 2016-07-30 19:40)
DX: O14.14 Severe pre-eclampsia complicating childbirth (principal); O30.033 Twin pregnancy, monochorionic/diamniotic, third trimester; O99.214 Obesity complicating childbirth; E66.01 Morbid (severe) obesity due to excess calories; Z68.43 Body mass index [BMI] 50.0-59.9, adult; O26.93 Pregnancy related conditions, unspecified, third trimester; K21.9 Gastro-esophageal reflux disease without esophagitis; O34.211 Maternal care for low transverse scar from previous cesarean delivery; Z37.2 Twins, both liveborn; Z3A.35 35 weeks gestation of pregnancy
CPT/HCPCS: 36415; 80053; 81000; 82570; 83615; 83735; 84156; 84550; 85025; 86850; 86900; 86901; 87088; 88307; 94664; 99212

== ENCOUNTER 2019-03-24 18:37 | Emergency (ER) | payer SELFPAY ==
[~2019-03-24] VITALS: Ht 162 cm; Wt 122.4 kg
[~2019-03-24 18:37] MED LIST changes: +DOCU-143 PO; +HYDR-3820 PO; +IBUP-1773 PO; +LABE200T7 PO; +OXYC1TAB87 PO; +RANI-613 PO; -RANI150T15 PO
[2019-03-24] MEDS ORDERED: PROM5SYR PO (19:07)
--- NOTE | 2019-03-24 19:08 | ED General ---
General Stated Complaint: VOMITING, COUGH, Source of Information: Patient Exam Limitations: No Limitations History of Present Illness Date Seen by Provider: Mar 24, 2019 Time Seen by Provider: 19:05 Initial Comments To ER with one week history of cough vomiting diarrhea. Cough is productive. Timing/Duration: 1 Week Severity: Moderate Associated Systoms: Cough, Malaise, Nausea/Vomiting Allergies and Home Medications Allergies Coded Allergies: tramadol (Unverified Adverse Reaction, Unknown, 09/19/17) Reports Dr Lofton told her to not take it Home Medications Docusate Sodium 100 Mg Capsule, 100 MG PO BID PRN for CONSTIPATION Prescribed by: BRENNA SANDERS on 07/30/162108 Folic Acid 0.4 Mg Tablet, 0.4 MG PO DAILY, (Reported) Hydrocodone/Acetaminophen 1 Each Tablet, 2 EA PO Q4H PRN for MODERATE PAIN Prescribed by: ERIKA COOK on 08/02/16909 Ibuprofen 600 Mg Tablet, 600 MG PO Q6H Prescribed by: BRENNA SANDERS on 07/30/162108 Ibuprofen 800 Mg Tablet, 800 MG PO Q6HR Prescribed by: ERIKA COOK on 08/02/16909 Labetalol HCl 200 Mg Tablet, 200 MG PO TID Prescribed by: ERIKA COOK on 08/02/16 09 Oxycodone HCl/Acetaminophen 1 Each Tablet, 1-2 EACH PO Q4H PRN for PAIN Prescribed by: BRENNA SANDERS on 07/30/162108 Pediatric Multivit Comb No.101 1 Each Tab.chew, 2 EACH PO DAILY, (Reported) Promethazine HCl 25 Mg Tablet, 25 MG PO Q8H PRN for NAUSEA/VOMITING Prescribed by: TONY DAVALOS on 01/06/16 0333 Promethazine HCl/Codeine 5 Ml Syrup, 5 ML PO Q4H PRN for COUGH Prescribed by: NATALYA FAN on 03/24/19 1907 Ranitidine HCl 150 Mg Tablet, 150 MG PO BID, (Reported) Patient Home Medication List Home Medication List Reviewed: Yes Review of Systems Review of Systems Constitutional: see HPI, malaise, weakness EENTM: see HPI, nose congestion Respiratory: see HPI, cough Cardiovascular: no symptoms reported Genitourinary: no symptoms reported Musculoskeletal: no symptoms reported Skin: no symptoms reported Psychiatric/Neurological: No Symptoms Reported Hematologic/Lymphatic: No Symptoms Reported Past Cjfjwkc-Wtzjoa-Fjvggi Hx Patient Social History Recent Foreign Travel: No Contact w/Someone Who Travel: No Recent Hopitalizations: No Immunizations Up To Date Tetanus Booster (TDap): Unknown PED Vaccines UTD: No Date of Influenza Vaccine: Feb 24, 2015 Seasonal Allergies Seasonal Allergies: No Past Medical History Surgeries: Yes (Colonoscopy x 2) Section Respiratory: Yes Asthma Cardiac: No Neurological: No Reproductive Disorders: No Sexually Transmitted Disease: No HIV/AIDS: No Genitourinary: No Gastrointestinal: Yes Gastroesophageal Reflux Musculoskeletal: No Endocrine: No Cancer: No Psychosocial: No Depression Integumentary: No Blood Disorders: No Adverse Reaction/Blood Tranf: No Family Medical History Asthma 19 MOTHER Cervical cancer G8 SISTER FH: Crohn's disease 19 MOTHER Hypertension 19 MOTHER Physical Exam Vital Signs Vital Signs - First Documented 03/24/19 19:10 Temp 36.7 Pulse 81 Resp 20 B/P (MAP) 101/69 (80) Pulse Ox 98 Capillary Refill : Height, Weight, BMI Height: 5'0.00" Weight: 272lbs. 0.0oz. 123.689310id; 53.1 BMI Method:Stated General Appearance: No Apparent Distress, WD/WN, Obese Eyes: Bilateral Eye Normal Inspection, Bilateral Eye PERRL, Bilateral Eye EOMI HEENT: PERRL/EOMI, TMs Normal; No Tonsillar Exudate; Tonsillar Enlargement Neck: Lymphadenopathy (R) Respiratory: No Accessory Muscle Use, No Respiratory Distress, Wheezing (faint wheeze lll) Cardiovascular: Regular Rate, Rhythm, Normal Peripheral Pulses Gastrointestinal: Normal Bowel Sounds, Non Tender, Soft Extremity: Normal Capillary Refill, Normal Inspection Neurologic/Psychiatric: Alert, Oriented x3 Skin: Normal Color, Warm/Dry Progress/Results/Core Measures Suspected Sepsis SIRS Temperature: Pulse: Respiratory Rate: Blood Pressure / Mean: Results/Orders My Orders Orders - NATALYA FAN APRN Chest Pa/Lat (2 View) (03/24/19 19:03) Ondansetron Oral Dissolve Tab (Zofran (03/24/19 19:15) Promethazine/ Codeine Syrup (Phenergan W (03/24/19 19:15) Vital Signs/I&O 03/24/19 19:10 Temp 36.7 Pulse 81 Resp 20 B/P (MAP) 101/69 (80) Pulse Ox 98 Capillary Refill : Departure Impression Primary Impression: Viral syndrome Disposition: 01 HOME, SELF-CARE Condition: Stable Departure-Patient Inst. Decision time for Depature: 19:06 Referrals: NO,LOCAL PHYSICIAN (PCP/Family) Primary Care Physician Patient Instructions: VIRAL SYNDROME Add. Discharge Instructions: 1. Use [id number] Imodium for diarrhea 2. Stay hydrated with plenty of fluids 3. Nausea medication and cough medication as directed. Scripts Albuterol Sulfate (PROAIR HFA) 1 Puff Puff 2 PUFF IH Q4H PRN for WHEEZING, #1 PUFF 1 PUFF = 90 MCG Prov: NATALYA FAN APRN 03/24/19 Promethazine HCl/Codeine (Prometh-Codein 6.25-10 mg/5 ml) 5 Ml Syrup 5 ML PO Q4H PRN for COUGH, #120 ML Prov: NATALYA FAN APRN 03/24/19 NATALYA FAN APRN Mar 24, 2019 19:07 POS
[2019-03-24] MEDS ORDERED: ONDANSETRON 4 MG (ZOFRAN) ORAL DISSOLVE TAB PO ONE (19:15)
[2019-03-24] MEDS ORDERED: PROMETHAZINE/ CODEINE SYRUP 5 ML UDC PO ONE (19:15)
[2019-03-24] MEDS ORDERED: RT-ALBUINH IH (19:27)
--- NOTE | 2019-03-24 19:27 | Diagnostic Imaging Report ---
Patient History: Cough. Stomach pain.. Technique: Two views of the chest Comparison: None FINDINGS: The lung volumes are normal. No focal consolidation is seen. No large pleural effusion or pneumothorax is seen. The cardiomediastinal silhouette is normal in size and contour. No acute osseous abnormality is seen. IMPRESSION: 1. No acute pleuroparenchymal process. Dictated by: Dictated on workstation # [id number]
[2019-03-24 19:37] VITALS: BP 101/69
== END 2019-03-24 19:40 | disposition home or self-care (01) ==
LOC: EDUNIT# 18:37 → ER 18:39
DX: B34.9 Viral infection, unspecified (principal); J45.909 Unspecified asthma, uncomplicated; K21.9 Gastro-esophageal reflux disease without esophagitis; F32.9 Major depressive disorder, single episode, unspecified; Z88.5 Allergy status to narcotic agent; Z82.49 Family history of ischemic heart disease and other diseases of the circulatory system; Z80.49 Family history of malignant neoplasm of other genital organs
CPT/HCPCS: 71046

== ENCOUNTER 2020-08-20 20:07 | Emergency (ER) | payer SELFPAY ==
[~2020-08-20 20:07] MED LIST changes: +ACHYD1T PO; -FOLI0.4T2 PO; +FOLI0.4T6 PO; -HYDR-3820 PO; -OXYC-465 PO; +OXYC-556 PO; +PROM5SYR PO; +RT-ALBUINH IH
== END 2020-08-20 20:22 | disposition left against medical advice (07) ==
LOC: EDUNIT# 20:07 → ER 20:09
DX: K08.89 Other specified disorders of teeth and supporting structures (principal)

== ENCOUNTER 2023-04-02 16:31 | Emergency (ER) | payer BC, OTHER ==
[~2023-04-02] VITALS: Ht 154 cm; Wt 127.0 kg
[~2023-04-02 16:31] MED LIST changes: +ALBU8.5H6 IH; +LABE200T10 PO; -LABE200T7 PO; +OMEP20TA56 PO; -OMEP20TA7 PO; -RT-ALBUINH IH; -SULF1TAB35 PO; +SULF1TAB38 PO
--- NOTE | 2023-04-02 17:09 | ED Lower Extremity ---
General Chief Complaint: Lower Extremity Stated Complaint: FALL - RT KNEE PAIN, RT SIDE HIP, LACS AND BRUISIN Source: patient Exam Limitations: no limitations (JANETTE LINDER APRN) History of Present Illness Date Seen by Provider: Apr 02, 2023 Time Seen by Provider: 16:57 Initial Comments 27-year-old female presents to the ER after a fall. She states that she was jumping due to excitement and fell. She landed on her right knee. Presents with abrasion to right knee. She is complaining of pain in her right knee, right thigh, and right hip. Patient is ambulatory. Patient is currently on her menstrual cycle and she has a copper IUD. She currently takes cetirizine and Protonix. She has a history of gastric reflux. (JANETTE LINDER APRN) Allergies and Home Medications Allergies Coded Allergies: No Known Drug Allergies (Unverified , 04/02/23) Patient Home Medication List Home Medication List Reviewed: Yes (JANETTE LINDER APRN) Albuterol Sulfate (Ventolin Hfa) 1 Puff Puff, 2 PUFF IH Q4H PRN for WHEEZING Prescribed by: NATALYA FAN on 03/24/191926 Docusate Sodium (Colace) 100 Mg Capsule, 100 MG PO BID PRN for CONSTIPATION Prescribed by: BRENNA SANDERS on 07/30/162108 Folic Acid (Folic Acid) 0.4 Mg Tablet, 0.4 MG PO DAILY, (Reported) Entered as Reported by: MAT GRANADO on 03/24/162153 Hydrocodone Bit/Acetaminophen (HYDROcodone/APAP 10/325 TABLET) 1 Each Tablet, 2 EA PO Q4H PRN for MODERATE PAIN Prescribed by: ERIKA COOK on 08/02/16 09 Hydrocodone/Acetaminophen (Hydrocodone-Acetamin 5-325 mg) 5 Mg-325 Mg Tablet, 1 TAB PO Q6H PRN for PAIN-MODERATE (5-7) Prescribed by: Janette Newell on 04/02/231814 Ibuprofen (Ibuprofen) 600 Mg Tablet, 600 MG PO Q6H Prescribed by: BRENNA SANDERS on 07/30/162108 Ibuprofen (Ibuprofen) 800 Mg Tablet, 800 MG PO Q6HR Prescribed by: ERIKA COOK on 08/02/16 0910 Labetalol HCl (Labetalol HCl) 200 Mg Tablet, 200 MG PO TID Prescribed by: ERIKA COOK on 08/02/16 0911 Oxycodone HCl/Acetaminophen (Percocet 5-325 mg Tablet) 1 Each Tablet, 1-2 EACH PO Q4H PRN for PAIN Prescribed by: BRENNA SANDERS on 07/30/16 210 Pediatric Multivit Comb No.101 (Gummy) 1 Each Tab.chew, 2 EACH PO DAILY, (Repor aaron) Entered as Reported by: BALTAZAR BETTS on 06/08/16 0948 Promethazine HCl (Promethazine Tablet) 25 Mg Tablet, 25 MG PO Q8H PRN for NAUSEA/VOMITING Prescribed by: TONY DAVALOS on 01/06/16 0333 Promethazine HCl/Codeine (Prometh-Codein 6.25-10 mg/5 ml) 5 Ml Syrup, 5 ML PO Q4H PRN for COUGH Prescribed by: NATALYA FAN on 03/24/19 190 Ranitidine HCl (Zantac) 150 Mg Tablet, 150 MG PO BID, (Reported) Entered as Reported by: BALTAZAR BETTS on 06/08/16 0948 Review of Systems Constitutional: see HPI (JANETTE LINDER APRN) Past Wtszove-Rpuiqu-Imcuwn Hx Immunizations Up To Date Tetanus Booster (TDap): Unknown PED Vaccines UTD: No (JANETTE LINDER APRN) Seasonal Allergies Seasonal Allergies: No (JANETTE LINDER APRN) Past Medical History Surgeries: Yes (Colonoscopy x 2) Section Respiratory: Yes Asthma Cardiac: No Neurological: No Reproductive Disorders: No Sexually Transmitted Disease: No HIV/AIDS: No Genitourinary: No Gastrointestinal: Yes Gastroesophageal Reflux Musculoskeletal: No Endocrine: No HEENT: No Cancer: No Psychosocial: No Depression Integumentary: No Blood Disorders: No Adverse Reaction/Blood Tranf: No (JANETTE LINDER APRN) Family Medical History Asthma 19 MOTHER Cervical cancer G8 SISTER FH: Crohn's disease 19 MOTHER Hypertension 19 MOTHER Physical Exam Vital Signs Vital Signs - First Documented 04/02/23 16:40 Temp 36.7 Pulse 100 Resp 20 B/P (MAP) 145/91 (109) Pulse Ox 97 O2 Delivery Room Air (SHAWANDA TIRADO MD) Vital Signs Capillary Refill : (JANETTE LINDER APRN) Height, Weight, BMI Height: 5'0.00" Weight: 272lbs. 0.0oz. 123.723246jb; 46.00 BMI Method:Stated General Appearance: WD/WN, no apparent distress Neck: supple, normal inspection Cardiovascular: regular rate, rhythm Respiratory: lungs clear, normal breath sounds, no respiratory distress, no accessory muscle use Hips: right hip pain Legs: right leg pain (Right thigh), right leg soft tissue tenderness (Right thigh) Knees: right knee pain, right knee soft tissue tenderness Ankles: bilateral ankle non-tender, bilateral ankle normal inspection, bilateral ankle normal range of motion, bilateral ankle no evidence of injury, bilateral ankle other (Pulses intact, sensation intact distally, cap refill less than 2 seconds) Neurologic/Psychiatric: alert, normal mood/affect Skin: normal color, warm/dry (JANETTE LINDER APRN) Progress/Results/Core Measures Results/Orders Vital Signs/I&O 04/02/23 04/02/23 16:40 18:24 Temp 36.7 36.9 Pulse 100 81 Resp 20 19 B/P (MAP) 145/91 (109) 137/86 Pulse Ox 97 98 O2 Delivery Room Air Room Air (SHAWANDA TIRADO MD) Progress Progress Note : Progress Note Patient seen and evaluated, resting comfortably in bed, no acute distress. Based on exam and symptoms, x-ray of right hip, right femur, and right knee ordered. Ibuprofen ordered for pain. 180 imaging reviewed. Knee x-ray shows no acute fracture or subluxation. Hip x-ray shows no fracture, the right femoral head appears well-seated within the right acetabulum. Femur x-ray shows expansile lesion in the mid diaphysis of the right femur with irregular margins and some cortical thickening. Radiologist recommends MRI with and without contrast. Results discussed with patient. Patient reports that she has been having pain at the location of the bone lesion for a while. Patient instructed that she needs to follow-up with her primary care provider to get scheduled for an outpatient MRI. Will discharge with take-home pack of Hillsdale and prescription for Hillsdale. Patient is stable for discharge. Discharge instructions and return precautions provided. (JANETTE LINDER APRN) Diagnostic Imaging Diagonstic Imaging: Xray Plain Films/CT/US/NM/MRI: knee Comments [facility], [place] NAME: EDY RAMOS REC#: [id number] PT STATUS: REG ER : 05/29/1985 PHYSICIAN: JANETTE LINDER APRN ADMIT DATE: 04/02/23/ER Signed Date of Exam:04/02/23 CT ABD/PELVIS WO(KIDNEY STONE) Clinical Indication: Patient with abdominal pain since Thursday, mostly left flank. Hematuria. Patient has history of stones. Exam: CT exam of the abdomen and pelvis is performed without IV or oral contrast using stone protocol. Coronal and sagittal reformatted images were created. Auto Exposure Controls were utilized during the CT exam to meet ALARA standards for radiation dose reduction. Comparisons: None. Findings: Visualized lung bases: Unremarkable. Liver: Unremarkable as visualized. Gallbladder: Unremarkable. Pancreas: Unremarkable as visualized. Spleen: Unremarkable as visualized. Adrenal glands: Unremarkable. Kidneys/ ureters: There is a 3 mm stone in the region of the distal left ureter proximally, near the region of the left UVJ. There is no significant hydronephrosis. There is mild fat stranding adjacent to the left kidney and slight enlargement of the left kidney. There are no other urinary tract stones seen. Aorta: Unremarkable as visualized. Intraabdominal/ retroperitoneal contents: Unremarkable. Intestines: Unremarkable as visualized. Appendix: Unremarkable. Bladder: Unremarkable as visualized. Pelvic organs: Unremarkable as visualized. IUD is seen within the uterus. There is minimal free fluid in the pelvis, likely physiologic. Extra abdominal/ pelvis regions: Unremarkable. Abdominal wall: Unremarkable. Bones: Unremarkable. Impression: 1: There is a 3 mm nonobstructive stone involving the distal left ureter just proximal to the left UVJ. There is mild prominence of the left kidney and mild left perinephric fat stranding. 2: The remainder of this exam is unremarkable. Dictated by: Dictated on workstation # [id number] Dict: 04/02/23 1358 Trans: 04/02/23 1405 [facility] [phone] Interpreted by: RADHA LUBIN MD Electronically signed by: RADHA LUBIN MD 04/02/23 1405 Diagonstic Imaging: Xray Plain Films/CT/US/NM/MRI: hip Comments [facility] [place] NAME: MADELINE GRAJEDA [facility] REC#: [id number] PT STATUS: REG ER : 1995 PHYSICIAN: JANETTE LINDER APRN ADMIT DATE: 04/02/23/ER Signed Date of Exam:04/02/23 HIP, RIGHT, 2 VIEWS INDICATIONS: Injured in fall presents with right hip pain COMPARISON: None. FINDINGS: Two views of the right hip show no evidence of new or healing fractures, bony destruction or remodeling. IMPRESSION: No fracture is present. The right femoral head appears well-seated within the right acetabulum. Dictated by: Dictated on workstation # [id number] Dict: 04/02/231733 Trans: 04/02/231742 [facility] [phone] Interpreted by: CHIRAG RAMSAY MD Electronically signed by: CHIRAG RAMSAY MD 04/02/23 174 Diagonstic Imaging: Xray Plain Films/CT/US/NM/MRI: leg Comments [facility] [place] [place] NAME: MADELINE GRAJEDA [facility] REC#: [id number] PT STATUS: REG ER : 1995 PHYSICIAN: JANETTE LINDER APRN ADMIT DATE: 04/02/23/ER Signed Date of Exam:04/02/23 FEMUR, RIGHT, 2 VIEWS INDICATION: 27-year-old female presents. Was in standing position then tripped and fell. Has pain down the right leg. COMPARISON: None. FINDINGS: AP and lateral views of the right femur show an expansile midshaft lesion with irregular margins extending from the lateral cortex with some cortical thickening. No evidence of fracture is seen. The right femoral head appears well-seated within the right acetabulum. Right knee is unremarkable with no evidence of right knee joint effusion. IMPRESSION: Expansile lesion in the mid diaphysis right femur with irregular margins and some cortical thickening. Correlation with MRI with and without contrast recommended. Dictated by: Dictated on workstation # [id number] Dict: 04/02/231731 Trans: 04/02/231742 [facility] [phone] Interpreted by: CHIRAG RAMSAY MD Electronically signed by: CHIRAG RAMSAY MD 04/02/231742 (JANETTE LINDER APRN) Departure Impression Primary Impression: Fall Additional Impressions: Hip pain Knee pain Pain in femur Symptomatic bone lesion with abnormal x-ray Disposition: HOME, SELF-CARE Condition: Stable Departure-Patient Inst. Decision time for Depature: 18:11 (JANETTE LINDER APRN) Referrals: [facility] ([place]/Family) Primary Care Physician Patient Instructions: Bone Cancer (DC) Add. Discharge Instructions: You need to follow-up with your primary care provider. Call the [facility] tomorrow to schedule a follow-up appointment for next week. You can see the next available provider. You will need to get further imaging of your leg to evaluate this lesion. It may be benign, but it could be cancerous so it is very important that you fo llow-up next week. Take [place] as needed for pain. It may make you sleepy. It may cause constipation. Do not take while driving or operating heavy machinery. Return for any new, concerning, or worsening symptoms. All discharge instructions reviewed with patient and/or family. Voiced understanding. Scripts Hydrocodone/Acetaminophen (Hydrocodone-Acetamin 5-325 mg) 5 Mg-325 Mg Tablet 1 TAB PO Q6H PRN for PAIN-MODERATE (5-7), #12 TAB 0 Refills Prov: JANETTE LINDER APRN 04/02/23 ATTENDING PHYSICIAN NOTE: I was physically present as attending physician in the emergency department during the care of this patient, but I was not directly involved in the decision making or delivery of care for this patient. (SHAWANDA TIRADO MD) Copy Copies To 1: [facility] JANETTE LINDER APRN Apr 02, 2023 17:09 SHAWANDA TIRADO MD Apr 03, 2023 14:08
[2023-04-02] MEDS ORDERED: IBUPROFEN 800 MG TABLET PO ONE (17:15)
--- NOTE | 2023-04-02 17:42 | Diagnostic Imaging Report ---
INDICATION: 27-year-old female presents. Was in standing position then tripped and fell. Has pain down the right leg. COMPARISON: None. FINDINGS: AP and lateral views of the right femur show an expansile midshaft lesion with irregular margins extending from the lateral cortex with some cortical thickening. No evidence of fracture is seen. The right femoral head appears well-seated within the right acetabulum. Right knee is unremarkable with no evidence of right knee joint effusion. IMPRESSION: Expansile lesion in the mid diaphysis right femur with irregular margins and some cortical thickening. Correlation with MRI with and without contrast recommended. Dictated by: Dictated on workstation # [id number]
--- NOTE | 2023-04-02 17:43 | Diagnostic Imaging Report ---
INDICATIONS: Injured in fall presents with right hip pain COMPARISON: None. FINDINGS: Two views of the right hip show no evidence of new or healing fractures, bony destruction or remodeling. IMPRESSION: No fracture is present. The right femoral head appears well-seated within the right acetabulum. Dictated by: Dictated on workstation # [id number]
--- NOTE | 2023-04-02 17:43 | Diagnostic Imaging Report ---
INDICATION: 27-year-old female injured in fall presents with right knee pain. COMPARISON: None. FINDINGS: Three views of the right knee show no evidence of new or healing fracture, bony destruction or remodeling. IMPRESSION: No fracture or subluxation seen. Dictated by: Dictated on workstation # [id number]
[2023-04-02] MEDS ORDERED: ACHD5005 PO (18:14)
[2023-04-02 18:24] VITALS: BP 137/86
== END 2023-04-02 18:25 | disposition home or self-care (01) ==
LOC: EDUNIT# 16:31 → ER 16:34
DX: M25.551 Pain in right hip (principal); M79.651 Pain in right thigh; M25.561 Pain in right knee; R93.7 Abnormal findings on diagnostic imaging of other parts of musculoskeletal system; K21.9 Gastro-esophageal reflux disease without esophagitis; Z79.899 Other long term (current) drug therapy; W18.30XA Fall on same level, unspecified, initial encounter; Y93.39 Activity, other involving climbing, rappelling and jumping off
CPT/HCPCS: 73502; 73552; 73562